=== PATIENT | female | born 1990 | race Caucasian/White ===

== ENCOUNTER → 2018-02-01 | Outpatient (CLI) | payer OTHER | LOC: FIMAGING 08:52 | PROVIDERS: ATTEND Internal Medicine Nephrology | DX: N05.9 Unspecified nephritic syndrome with unspecified morphologic changes (principal) ==

== ENCOUNTER 2018-02-20 12:09 | Inpatient (IN) | payer OTHER ==
[2018-02-20] MEDS ORDERED: ONDANSETRON DISINTEGRATING 4 MG TAB PO PRN (15:25)
[2018-02-20] MEDS ORDERED: ONDANSETRON 4 MG/2 ML VIAL IVP PRN (15:25)
[2018-02-20] MEDS ORDERED: LORazepam 1 MG TAB PO PRN (15:29)
[2018-02-20] MEDS ORDERED: Lisdexamfetamine Dimesylate [Vyvanse] 50 MG PO PRN (15:29)
[2018-02-20] MEDS ORDERED: ALBUTEROL 60 PUFFS/8 GM MDI IH PRN (15:29)
--- NOTE | 2018-02-20 16:06 | PDGENHP ---
History and Physical - Chief Complaint blood in urine, rash, abdominal pain - History of Present Illness 27yo F with history of HSP/IgA nephropathy presents with 2 days of blood in urine, abdominal pain, rash on lower legs. These symptoms are all similar to 2 prior attacks of HSP. 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 Given her symptoms at that visit, she was started on prednisone 60mg daily. Labs were checked which showed a serum creatinine of 1.4, which was up from 1.0 on 02/06. Additionally, she had a 24 hour urine collection done on 02/06 that showed over 6g of proteinuria. Her trestle mainternance laborer recommended that she come into the hospital for high dose steroids given these findings. Upon my interview with patient, she reports improvement in abdominal pain and rash with steroids. No recent illnesses. No med changes except for addition of prednisone and PPI yesterday. She denies arthralgias, headache, shortness of breath, chest discomfort. I discussed the patient's recent outpatient medical course with her trestle mainternance laborer , Dr Jayy Chaparro and have reviewed her records, including extensive labs ( cryos, complements, SPEP, ELIJAH, RF, anti-Sm abs, SSA/SSB abs, dsDNA abs, U1RNP abs, ANCA, HIV, hep A/B/C serologies, monospot screen), imaging (renal ultrasound (normal echogenicity and size of kidneys) and renal biopsy results (9 / gloms with global sclerosis, 17/ gloms with segmental sclerosis, moderate interstitial fibrosis and tubular atrophy) in [facility]. History Information - Allergies/Home Medication List Allergies/Adverse Reactions: No Known Allergies Allergy (Unverified 06/26/15 19:01) Home Medications: Albuterol [Proventil Inhaler HFA (*)] 1 - 2 puffs IH Q4H PRN 02/20/18 [Last Taken 3 Weeks Ago ~01/30/18] Cyanocobalamin [Vitamin B12 1000MCG/ML (*)] 1 ea INJ Q30D 02/20/18 [Last Taken 3 Weeks Ago ~01/30/18] LORazepam [Ativan (*)] 1 mg PO DAILY PRN 02/20/18 [Last Taken 02/19/18] Lisdexamfetamine Dimesylate [Vyvanse] 50 mg PO DAILY PRN 02/20/18 [Last Taken ] Loratadine/Pseudoephedrine [Claritin-D 12 Hour Tablet] 1 each PO DAILY PRN 02/20 [Last Taken 2 Weeks Ago ~02/06/18] diphenhydrAMINE [Benadryl 25 MG (*)] 25 mg PO HS PRN 02/20/18 [Last Taken 2 Weeks Ago ~02/06/18] predniSONE 60 mg PO DAILY 02/20/18 [Last Taken 02/20/18] I have personally reviewed and updated: family history, medical history, social history, surgical history - Past Medical History Additional medical history: HSP (first diagnosed in 2015, has had 2 flares treated with steroids), IgA nephropathy (biopsy proven 02/2018) - Surgical History Additional surgical history: kidney biopsy, breast reduction surgery - Family History Additional family history: no family h/o renal disease, father passed of non- Hodgkin B cell lymphoma several years ago, no known rheumatologic disease - Social History Smoking Status: Never smoked Alcohol Use: Rarely Drug Use: None Additional social history: lives with suma in [place], works in [employer] in [place] Review of Systems Review of Systems: ROS: 10pt was reviewed & negative except for what was stated in HPI & below Physical Exam Physical Exam: Temp Pulse Resp BP Pulse Ox 36.6 C 120 H 16 135/87 H 95 02/20/18 14:47 02/20/18 14:47 02/20/18 14:47 02/20/18 14:47 02/20/18 14:47 Constitutional: no apparent distress, appears nourished, not in pain Eyes: PERRL, anicteric sclera, EOMI Ears, Nose, Mouth, Throat: moist mucous membranes, hearing normal, ears appear normal, no oral mucosal ulcers Cardiovascular: regular rate and rhythym, no murmur, rub, or gallop, No edema Respiratory: no respiratory distress, no rales or rhonchi, clear to auscultation Gastrointestinal: normoactive bowel sounds, no palpable masses, tenderness ( epigastric area without rebound), No hepatosplenomegally, No guarding, No rebound Skin: other (non-palpable, non-blanchable erythematous lesions over lower extremities below knees consistent with purpura) Neurologic: AAOx3, sensation intact bilaterally, CN II-XII Intact, No weakness, No numbness Psychiatric: interacting appropriately, not anxious, not encephalopathic, thought process linear Assessment & Plan Assessment: 27yo F with history of HSP/IgA nephropathy presents with 2 days of blood in urine, abdominal pain, rash on lower legs consistent with HSP flare. Her trestle mainternance laborer had recommended she come into hospital due to findings on recent renal biopsy and 24 hour urine collection. Plan: #Henoch-Schonlein purpura (HSP) nephritis/IgA nephropathy: Biopsy proven. She is currently having an acute flare with apparent worsening renal involvement. Manifested as nephrotic range proteinuria (>6g on 24 hour urine collection), glomerulonephritis, abdominal pain, purpura on legs. - Initiate high dose steroids with methylprednisolone 1g daily for 3 days - Start pantoprazole for GI ppx, calcium/vit D for bone health, ACHS glucose checks - Renal aware, Dr Chaparro will see in AM - Will consult Dr Osmel Nunez of rheumatology, who previously saw patient in outpatient setting, to discuss starting additional therapy such as rituximab - Plan to start ACEi during this admission - Check lipid panel. May need statin therapy - Monitor for complications of nephrosis including hypertension, edema, venous and arterial thrombosis - Monitor renal function daily #Reactive airways disease: No flare. Continue albuterol prn #Insomnia: Continue home lorazepam prn Diet: regular VTE ppx: high risk, SQH Code: full Dispo: Admit under inpatient status as she will require >2 midnights of IV therapies. Case discussed at length with patient and her fiance.
[2018-02-20] MEDS: PANTOPRAZOLE SODIUM 40 MG TAB PO SCH (17:00)
[2018-02-20] MEDS: methylPREDNISolone SOD SUCC 1 GM in D5W 100 ML IV SCH (17:35)
[2018-02-20] MEDS ORDERED: oxyCODONE IR 5 MG TAB PO PRN (20:35)
[2018-02-20] MEDS: diphenhydrAMINE 25 MG CAP PO PRN (21:12)
[2018-02-20] MEDS: ACETAMINOPHEN 325 MG TAB PO PRN (21:12)
[2018-02-20] MEDS: CALCIUM CARB W/VIT D 500 MG TAB PO SCH (21:12)
[2018-02-20] MEDS: HEPARIN 5,000 UNIT/0.5 ML INJ SC SCH (21:15)
[2018-02-20] MEDS: LORazepam 1 MG TAB PO PRN (23:46)
[2018-02-21 05:34] LABS: PLATELET COUNT 398 10^3/uL (150-400)
[2018-02-21] MEDS: HEPARIN 5,000 UNIT/0.5 ML INJ SC SCH (05:58)
--- NOTE | 2018-02-21 08:42 | HOSPPROG ---
Hospitalist Progress Note Assessment/Plan: 27yo F with history of HSP/IgA nephropathy presents with 2 days of blood in urine, abdominal pain, rash on lower legs consistent with HSP flare. Her trackman had recommended she come into hospital for IV steroids due to findings on recent renal biopsy. #Henoch-Schonlein purpura (HSP) nephritis/IgA nephropathy: Biopsy proven. She is currently having an acute flare with worsening renal involvement. Manifested as nephrotic range proteinuria (>6g on 24 hour urine collection), glomerulonephritis, abdominal pain, purpura on legs, arthralgias. - Day 2/3 of 1g IV methylpred daily. Discharge on prednisone 30mg daily - Continue PPI, calcium/vit D, achs BG checks, bactrim for PCP prophylaxis - Renal (Dr Chaparro) and rheum (Dr Nunez) following - First dose of rituximab today, then repeat in 2 weeks - Hold on starting ACEi as creatinine has increased - Lipids ok, no need to start statin at this time - Monitor for complications of nephrosis including hypertension, edema, venous and arterial thrombosis #Acute kidney injury: Cr 1.7 this morning which is highest it's been. Management as above. Monitor daily. #Reactive airways disease: No flare. Continue albuterol prn #Insomnia: Continue home lorazepam prn Diet: regular VTE ppx: high risk, SQH Code: full Dispo: Continue inpatient admission for IV steroids and monitoring of renal function. Plan to discharge tomorrow. Subjective: Doing well. Abdominal pain and rash slightly better. No fevers. Slept ok. Objective: Vital Signs Temp Pulse Resp BP Pulse Ox 37.1 C 93 18 117/66 96 02/21/18 04:00 02/21/18 04:00 02/21/18 04:00 02/21/18 04:00 02/21/18 04:00 Laboratory Results 02/21/18 04:58 02/21/18 04:58 02/20/18 02/21/18 02/22/18 05:59 05:59 05:59 Intake Total 2115 Output Total 450 Balance 1665 - Physical Exam Constitutional: no apparent distress, appears nourished, not in pain Eyes: PERRL, anicteric sclera, EOMI Ears, Nose, Mouth, Throat: moist mucous membranes, hearing normal, ears appear normal, no oral mucosal ulcers Cardiovascular: regular rate and rhythym, no murmur, rub, or gallop Respiratory: no respiratory distress, no rales or rhonchi, clear to auscultation Gastrointestinal: normoactive bowel sounds, soft, non-tender abdomen, no palpable masses Skin: other (improving non-palpable purpura on lower legs) Neurologic: AAOx3 Psychiatric: interacting appropriately, not anxious, not encephalopathic, thought process linear ICD10 Worksheet Patient Problems: Problems Problem Status Onset Henoch-Schonlein purpura nephritis Acute - ICD10 Problem Qualifiers (1) Henoch-Schonlein purpura nephritis
--- NOTE | 2018-02-21 10:48 | PDMN ---
Medical Necessity Medical necessity: Pt meets inpt criteria per MD order and Urologic Disease GRG. Est LOS>2MN for management of glomerulonephritis, abdominal pain, and purpura on legs in setting of Henoch-Schonlein purpura (HSP)/IgA nephropathy, biopsy proven. Pt requiring inpt care for IV steroidsX3 days, renal consult, daily kidney function monitoring (BUN, creatinine today 29, 1.7), ongoing eval/ treatment.
[2018-02-21] MEDS: PANTOPRAZOLE SODIUM 40 MG TAB PO SCH (11:37)
[2018-02-21] MEDS: CALCIUM CARB W/VIT D 500 MG TAB PO SCH ×2 (11:37→20:17)
[2018-02-21] MEDS: methylPREDNISolone SOD SUCC 1 GM in D5W 100 ML IV SCH (11:38)
[2018-02-21] MEDS: LORazepam 1 MG TAB PO PRN ×2 (11:56→20:17)
--- NOTE | 2018-02-21 11:56 | GCON ---
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 HISTORY OF PRESENT ILLNESS: The patient is a very pleasant 27-year-old female with no real past medi heidi history except for Henoch-Schonlein purpura, who now presents with active glomerulonephritis. Hi story is obtained from the patient, and I have seen the patient in previous visits in my office. The patient first came to my attention in late December or early January of this year. We saw her in the office in early January, at which time she had a creatinine of 1.1, proteinuria and hematuria on her u rinalysis, and a normal blood pressure. Her urinalysis showed 5-10 red blood cells of normal morphol ogy per high-power field. We performed a 24-hour urine collection which, surprisingly, showed 7 g of protein excretion per day. We then performed a renal biopsy. This was remarkable for showing 1/3 o f her glomeruli glomerularly sclerosed, 40% of her tubular interstitial area with significant fibrosi s, and with 6 of her 10 remaining glomeruli showing crescents. Of these 6, 50% were primarily cellul ar, without fibrous changes. She also had evidence of significant foot process effacement, and focal segmental glomerulosclerosis. In reviewing her history, the patient appeared to have had 2 previous episodes of the vasculitis. Th is included an episode in 2015. Following that, her creatinine was 0.8. She had another episode in November. At that time, her creatinine peaked at 1.4, and ultimately fell to approximately 1.0. On Sunday of this week, I had the patient scheduled to follow up with her biopsy. The patient presen trace at that time with an active episode of vasculitis. This included flank pain, gross hematuria, mi d abdominal pain, and a vasculitic rash on her lower extremities. In addition, she had arthralgias. The patient was started on low-dose corticosteroids and a plan was formulated. Ultimately, it was d etermined to bring the patient in for pulse Solu-Medrol and initiation of rituximab therapy. The pat ient is also followed by mill beam fitter, Dr. Osmel Nunez. The patient is now here, receiving her initial corticosteroid therapy. She is tolerating this well. As relating to this, we were asked to consult with further details of her current status and treatment plan. PAST MEDICAL HISTORY: Henoch-Schonlein purpura. SURGICAL HISTORY: None. ALLERGIES: No known drug allergies. CURRENT MEDICATIONS: Prednisone 60 mg daily, omeprazole 20 mg daily. FAMILY HISTORY: Positive for a malignancy in her father. He has since passed. SOCIAL HISTORY: The patient was born here in [place]. 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 She is recen tly engaged. Her sister is an oncology nurse. She does not smoke cigarettes or drink alcohol. REVIEW OF SYSTEMS: A 12-system review is notable only for her symptoms of her HSP attack. These hav e all improved. Her gross hematuria is improving. Her rash on lower extremities is stable. She has some mid epigastric abdominal pain that is improving. There are no symptoms of infection. She does not have a history of diabetes or thyroid disease. PHYSICAL EXAM: GENERAL: At the time of exam, the patient is appropriate and alert. VITAL SIGNS: T emperature 37.1, pulse 96, blood pressure 124/82. EYES: Sclerae clear. Oropharynx clear. NECK: N o lymphadenopathy or thyromegaly. LUNGS: Clear to auscultation bilaterally. CARDIOVASCULAR: Regul ar rate and rhythm without gallops or rubs. ABDOMEN: The patient has mild tenderness over her mid a bdomen and her left upper quadrant. This is improved. : Deferred. RECTAL: EXTREMITIES: No low er extremity edema. INTEGUMENT: The patient does have a purpuric rash over both lower extremities. It is otherwise clear. NEURO: No focal findings. LABORATORY STUDIES: White count 11.4, hematocrit 33.8, platelets 398. Sodium 139, potassium 4.4, cr eatinine 1.7. Total cholesterol 173. IMPRESSION AND PLAN: IgA vasculitis with crescentic glomerulonephritis. The patient does have active crescentic glomerulonephritis. She already has significant chronicity. In light of both of these issues, we wish to slow the progression of her renal failure, without ul cing too great of toxicity with the treatment regimen. My main concerns are in slowing current inflammation and sclerosis, while ultimately decreasing vascu litic episodes in the future. I do not believe long-course corticosteroids are appropriate, and ther e are several studies recently suggesting this, especially in light of her chronicity. I do believe, however, it is appropriate to give high-dose short-term corticosteroids for the current inflammation , then ultimately convert her to steroid sparing therapy. The choice of the latter is not well known in Henoch-Schonlein purpura and IgA vasculitis. There are multiple options, including plasmapheresi s, cytotoxic agents, calcineurin inhibitors, mycophenolate, and rituximab. I have spent an extensive period of time reviewing the literature and speaking with colleagues. This includes her rheumatolog ist, Dr. Osmel Nunez. At present, we do believe that rituximab, while there is not extensive expe rience with this in HSP, does offer the best chance of modulating her disease process, with the least side effects and toxicity. I also believe we could taper her steroids over a 1 month period of time , and then rely on her rituximab to prevent future episodes. I have discussed this with the patient, her mother, and her sister who is a nurse. I have advised the patient of the concerns of immunosupp ression, as well as other side effects of corticosteroids, including avascular necrosis and weight ga in. At this point, the patient and the family wish to proceed. We have already begun bolusing with high-dose Solu-Medrol. Following this, we will place her on 30 mg of prednisone a day and begin tape ring this after several weeks. Finally, we will plan on giving her rituximab during this hospitaliza tion. She will need her next dose in 2 weeks. The course of how long to treat will be dependent on several factors. However, I believe it is likely we will continue therapy for approximately 2 years, after which time we would halt and watch for further disease activity. The patient's creatinine has jumped significantly today. In light of this, I will not begin Brent inhi bition yet, but we will plan on adding this. We also want to protect her bone calcium, have her on a proton pump inhibitor, and have her on PCP prophylaxis. As of now, her lipid levels look good. Thank you for allowing me to participate in this young lady's care. We will continue following close ly with you. /[id number]/MODL
[2018-02-21] MEDS: SULFAMETHOX/TMP 800/160 MG 1 TAB PO SCH (14:10)
--- NOTE | 2018-02-21 14:45 | ASMTCMCOM ---
CM Note CM Note Notes: Chart reviewed.27 year old female admitted for treatment of vasculitis. Nephrology following. No current needs identified. CM to follow. Plan: TBD Date Signed: 02/21/2018 02:17 PM Electronically Signed By:Brenda Whitmore RN
[2018-02-21] MEDS: ACETAMINOPHEN 325 MG TAB PO PRN (18:35)
[2018-02-21] MEDS: diphenhydrAMINE 25 MG CAP PO PRN (20:17)
[2018-02-22] MEDS: LORazepam 1 MG TAB PO PRN ×3 (04:32→15:56)
[2018-02-22] MEDS: CALCIUM CARB W/VIT D 500 MG TAB PO SCH (09:17)
[2018-02-22] MEDS: SULFAMETHOX/TMP 800/160 MG 1 TAB PO SCH (09:17)
[2018-02-22] MEDS: PANTOPRAZOLE SODIUM 40 MG TAB PO SCH (09:17)
[2018-02-22] MEDS: methylPREDNISolone SOD SUCC 1 GM in D5W 100 ML IV SCH (09:18)
[2018-02-22] MEDS ORDERED: ACETAMINOPHEN 325 MG TAB PO ONE (09:30)
[2018-02-22] MEDS ORDERED: EPINEPHrine 1 MG/ML INJ IM PRN (10:00)
[2018-02-22] MEDS ORDERED: MEPERIDINE 25 MG/ML SYR IVP PRN (10:00)
[2018-02-22] MEDS ORDERED: DEXAMETHASONE 10 MG/ML VIAL IVP PRN (10:00)
[2018-02-22] MEDS ORDERED: riTUXimab 1,000 MG in NS 900 ML IV ONE (10:00)
[2018-02-22] MEDS ORDERED: NS 500 ML IV PRN (10:00)
[2018-02-22] MEDS ORDERED: NS 1,000 ML IV PRN (10:00)
[2018-02-22] MEDS ORDERED: HYDROCORTISONE 100 MG/2 ML VIAL IVP PRN (10:00)
--- NOTE | 2018-02-22 11:21 | SOAPPROG ---
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 She just developed another acute episode this week. Recent literature and recommendations suggest bolus solumedrol therapy, but longer course corticosteroid use does not seem helpful. Recommendations are also for concurrent cyclophosphamide, CNI, MM, or rituximab. CNI is not appropriate given current fibrosis and chronicity. Goal is for immediate anti inflammatory effect, and then disease modification to limit future flares of her HSP. At the same time, given some chronicity, we do not want to do harm with over immunosuppression. At this point, I agree that Rituximab appears to offer the greatest chance of limiting the vasculitic flares with the least amount of toxicity or risk of over immunosuppression. At this same time, she will be still be immunosuppressed. I have educated that she needs to monitor for signs of infection, and report immediately. I have also educated relating to other potential side effects of corticosteroids. She will receive Rituximab today. We will DC on prednisone 30mg daily. She will follow up with Dr. Nunez in two week, who will arrange second dose of rituximab (he is already working on authorization), and will taper her prednisone further. Suggested pred taper is 30mg for two weeks, then 20mg for two weeks, then 10mg for two weeks. She has been started on PCP prophylaxis. She will be started on ACEI as outpatient. She should get weeking RFP, CBC, and Urine pro/Cr ratios for now. I will see in 3-4 weeks. The above plan has been reviewed with Brianne and her family. Plan: 02/22/18 11:11 Subjective: Doing quite well. Objective: Vital Signs Temp Pulse Resp BP Pulse Ox 36.5 C 99 16 128/89 H 97 02/22/18 08:40 02/22/18 08:40 02/22/18 08:40 02/22/18 08:40 02/22/18 08:40 Laboratory Results 02/21/18 04:58 02/22/18 04:30 02/21/18 02/22/18 02/23/18 05:59 05:59 05:59 Intake Total 2115 500 500 Output Total 450 1150 Balance 1665 -650 500 Physical Exam - Physical Exam General Appearance: no apparent distress Respiratory: lungs clear Cardiac/Chest: regular rate, rhythm Skin: other (no further vasculitic lesions) Extremities: normal inspection ICD10 Worksheet Patient Problems: Problems Problem Status Onset Henoch-Schonlein purpura nephritis Acute
--- NOTE | 2018-02-22 14:53 | ASMTLACE ---
CIRA Acuity / Level of Answers: Yes Care: Did the patient have an inpatient admission? Comorbidities - select Answers: Other Notes: vasculitis all that apply # of Emergency department Answers: 0 visits in the last 6 months Score: 4 Date Signed: 02/22/2018 02:40 PM Electronically Signed By:Brenda Whitmore RN
--- NOTE | 2018-02-22 14:56 | ASMTCMCOM ---
CM Note CM Note Notes: Patient has been medically cleared for discharge to home. No needs. CM available if needs arise. Plan: DC to home independently. Date Signed: 02/22/2018 02:42 PM Electronically Signed By:Brenda Whitmore RN
[2018-02-22 15:56] VITALS: BP 118/68
--- NOTE | 2018-02-22 17:59 | PDDCSUM ---
Discharge Summary Discharge Summary: Date of Admission: 02/20/2018 Date of Discharge: 02/22/2018 Consultants: nephrology (Jayy Chaparro), rheumatology (Yefri Nunez) Discharge Diagnoses: 1. Rapidly progressive glomerulonephritis 2/2 2. IgA vasculitis/Henoch-Schonlein purpura Brief Hospital Course: 27yo F with history of HSP with recent kidney biopsy showing active crescentic IgA nephropathy presents with 2 days of hematuria, abdominal pain, purpura, arthralgias consistent with HSP flare. Given her recent rise in creatinine from 1.0->1.7, 24 hour urine collection showing >7g proteinuria, and biopsy results, her fitter machinist instructed her to come in. She received 3 days of 1g IV methylprednisolone. After discussions with nephrology and rheumatology, it was decided to pursue rituximab and she received one infusion of this. She was discharged on prednisone 30mg daily with plan to taper to 20mg after 2 weeks, then 10mg after an additional two weeks. She was also discharged with a PPI, bactrim for PCP ppx, and calcium/vit D for bone protection. Additional risks of steroid use were discussed including hyperglycemia, weight gain, Rodney's syndrome, avascular necrosis. Medications: Please refer to EMR for complete list. Additions this hospitalization include prednisone, pantoprazole, bactrim, vitamin D/calcium. Follow Up Plan: 1. Taper steroids as above 2. Weekly BMP, CBC, urine protein:creatinine 3. Clinic visit with Yefri Nunez in 2 weeks, plan for 2nd rituximab infusion at that time 4. Clinic visit with Jayy Chaparro in 3-4 weeks 5. Assess ability to initiate ALISSON/ARB therapy (unable during this hospitalization due to renal function) 6. Monitor lipids, BP, other complications of nephrosis Physical Exam: Vitals reviewed, normotensive. Alert and oriented. RRR without m/ r/g on cardiac exam, lungs clear, abdomen soft and nontender, no lower extremity edema or JVD. Much improve and almost resolved purpura on lower extremities. No oral lesions or synovitis.
== END 2018-02-22 17:18 | disposition home or self-care (01) | DRG 699 ==
LOC: UNDOADMOB 12:09 → F1N 12:09 → OBSVTOIN 15:27
PROVIDERS: ADMIT Internal Medicine; ATTEND Internal Medicine
DX: N02.8 Recurrent and persistent hematuria with other morphologic changes (principal); D69.0 Allergic purpura; N17.9 Acute kidney failure, unspecified; J45.909 Unspecified asthma, uncomplicated; G47.00 Insomnia, unspecified
CPT/HCPCS: J1200; J1644; J2930; J9310